=== PATIENT | female | born 1995 | race Caucasian/White ===

== ENCOUNTER 2020-08-04 02:22 | Inpatient (IN) | payer OTHER ==
[~2020-08-04] VITALS: Ht 167.6 cm; Wt 81.1 kg
[2020-08-04] MEDS ORDERED: PRENATAL TABLE1 EAC2 PO (03:27)
[2020-08-04 03:40] LABS: BASOPHILS ABSOLUTE AUTO 0.01 K/mm3 (0.00-0.23); BASOPHILS PERCENT AUTO 0 % (0-2); EOSINOPHILS ABSOLUTE AUTO 0.02 K/mm3 (0.00-0.68); EOSINOPHILS PERCENT AUTO 0 % (0-6); Hematocrit 39.7 % (33.0-51.0); IMMATURE GRAN ABSOLUTE AUTO 0.08 K/mm3 (0.00-0.10); IMMATURE GRAN PERCENT AUTO 1 % (0-1); LYMPHOCYTES ABSOLUTE AUTO 2.12 K/mm3 (0.84-5.20); LYMPHOCYTES PERCENT AUTO 21 % (21-46); MONOCYTES ABSOLUTE AUTO 0.87 K/mm3 (0.16-1.47); MONOCYTES PERCENT AUTO 9 % (4-13); Mean Corpuscular HGB 30.7 pg (26.0-34.0); Mean Corpuscular HGB Conc 32.7 g/dL (31.5-36.5); Mean Corpuscular Volume 94 fL (80-100); Mean Platelet Volume 10.3 fL (9.1-12.4); NEUTROPHILS ABSOLUTE AUTO 6.86 K/mm3 (1.96-9.15); NEUTROPHILS PERCENT AUTO 69 % (41-73); Platelet Count 163 K/mm3 (150-400); RDW Coefficient Variation 16.5 % (11.7-14.2); RDW Standard Deviation 56.8 fL (35.1-46.3); Red Blood Cell Count 4.23 M/mm3 (3.80-5.20); White Blood Cell Count 9.96 K/mm3 (4.00-11.30)
[2020-08-04 04:11] LABS: Influenza A, PCR Negative (NEGATIVE); Influenza B, PCR Negative (NEGATIVE); Resp Syncytial Virus, PCR Negative (NEGATIVE); SARS-Cov-2 (COVID-19) PCR, MMC Negative (NEGATIVE)
--- NOTE | 2020-08-04 17:34 | NUR ---
SHIFT SUMMARY PT HAD THIS AM, MOM IS EXPERIENCED WITH NB, PT MEDICATED FOR CRAMPS THIS SHIFT. [facility] FAXED.
--- NOTE | 2020-08-04 20:03 | NUR ---
1920- PT CALLED RN TO ROOM BECAUSE SHE PASSED A GOLF BALL SIZE CLOT. PT VOIDED AND THEN RN PERFORMED FUNDAL MASSAGE, SCANT BLEEDING NOTED AND NO FURTHER CLOTS EXPELLED, WILL CONTINUE TO MONITOR FOR HEAVY BLEEDING.
[2020-08-05 05:56] LABS: BASOPHILS ABSOLUTE AUTO 0.01 K/mm3 (0.00-0.23); BASOPHILS PERCENT AUTO 0 % (0-2); EOSINOPHILS ABSOLUTE AUTO 0.05 K/mm3 (0.00-0.68); EOSINOPHILS PERCENT AUTO 1 % (0-6); Hematocrit 35.5 % (33.0-51.0); Hemoglobin 11.1 g/dL (11.5-16.0); IMMATURE GRAN ABSOLUTE AUTO 0.06 K/mm3 (0.00-0.10); IMMATURE GRAN PERCENT AUTO 1 % (0-1); LYMPHOCYTES ABSOLUTE AUTO 3.14 K/mm3 (0.84-5.20); LYMPHOCYTES PERCENT AUTO 32 % (21-46); MONOCYTES ABSOLUTE AUTO 1.05 K/mm3 (0.16-1.47); MONOCYTES PERCENT AUTO 11 % (4-13); Mean Corpuscular HGB Conc 31.3 g/dL (31.5-36.5); Mean Corpuscular Volume 96 fL (80-100); Mean Platelet Volume 10.7 fL (9.1-12.4); NEUTROPHILS ABSOLUTE AUTO 5.46 K/mm3 (1.96-9.15); NEUTROPHILS PERCENT AUTO 56 % (41-73); Platelet Count 160 K/mm3 (150-400); RDW Coefficient Variation 16.9 % (11.7-14.2); RDW Standard Deviation 59.1 fL (35.1-46.3); White Blood Cell Count 9.77 K/mm3 (4.00-11.30)
== END 2020-08-05 10:00 | disposition home or self-care (01) | DRG 807 ==
LOC: OBS 02:22 → BC 02:22 → OBS 03:29 → BC 03:31
PROVIDERS: Nurse Practitioner Obstetrics & Gynecology; ADMIT Registered Nurse Community Health
PROC: 10E0XZZ Delivery of Products of Conception, External Approach (ICD-10-PCS; principal; 2020-08-04)
PROC: 00HU33Z Insertion of Infusion Device into Spinal Canal, Percutaneous Approach (ICD-10-PCS; 2020-08-04)
PROC: 3E0R3BZ Introduction of Anesthetic Agent into Spinal Canal, Percutaneous Approach (ICD-10-PCS; 2020-08-04)
DX: O70.1 Second degree perineal laceration during delivery (principal); Z37.0 Single live birth; Z3A.40 40 weeks gestation of pregnancy; Z20.828 Contact with and (suspected) exposure to other viral communicable diseases
CPT/HCPCS: 0241U; 36415; 85025; 86850; 86900; 86901; J1885; J2001; J2210; J2405; J2590; J3010; J7120

== ENCOUNTER → 2021-03-03 | Outpatient (CLI) | payer OTHER ==
[~2021-03-03] MED LIST: PRENATAL TABLE1 EAC2 PO
== END ==
LOC: LAB 12:57 → LAB SHORT 12:57
DX: N92.5 Other specified irregular menstruation (principal)
CPT/HCPCS: 84702; U0003

== ENCOUNTER 2022-12-29 02:16 | Inpatient (IN) | payer OTHER ==
[2022-12-29] VITALS (43 sets, daily range): BP systolic 84–128; BP diastolic 50–80
[~2022-12-29] VITALS: Ht 165.1 cm; Wt 81.3 kg
[2022-12-29 04:15] LABS: BASOPHILS ABSOLUTE AUTO 0.01 K/mm3 (0.00-0.23); BASOPHILS PERCENT AUTO 0 % (0-2); EOSINOPHILS ABSOLUTE AUTO 0.03 K/mm3 (0.00-0.68); EOSINOPHILS PERCENT AUTO 0 % (0-6); Hematocrit 37.1 % (33.0-51.0); Hemoglobin 12.2 g/dL (11.5-16.0); IMMATURE GRAN ABSOLUTE AUTO 0.09 K/mm3 (0.00-0.10); IMMATURE GRAN PERCENT AUTO 1 % (0-1); LYMPHOCYTES ABSOLUTE AUTO 2.35 K/mm3 (0.84-5.20); LYMPHOCYTES PERCENT AUTO 23 % (21-46); MONOCYTES ABSOLUTE AUTO 0.71 K/mm3 (0.16-1.47); MONOCYTES PERCENT AUTO 7 % (4-13); Mean Corpuscular HGB 29.6 pg (26.0-34.0); Mean Corpuscular HGB Conc 32.9 g/dL (31.5-36.5); Mean Corpuscular Volume 90 fL (80-100); Mean Platelet Volume 11.4 fL (9.1-12.4); NEUTROPHILS ABSOLUTE AUTO 7.12 K/mm3 (1.96-9.15); NEUTROPHILS PERCENT AUTO 69 % (41-73); Platelet Count 177 K/mm3 (150-400); RDW Coefficient Variation 13.1 % (11.7-14.2); RDW Standard Deviation 42.8 fL (35.1-46.3); Red Blood Cell Count 4.12 M/mm3 (3.80-5.20); White Blood Cell Count 10.31 K/mm3 (4.00-11.30)
--- NOTE | 2022-12-29 14:29 | NUR ---
REPORT OFF TO SAMAN DRUMMOND
--- NOTE | 2022-12-29 14:37 | NUR ---
ASSUMED CARE PT LYING IN BED EATAING LUNCH, STATES SHE DOES NOT FEEL HER LEGS AND COULD NOT STAND AT THIS TIME, CALL LIGHT GIVEN, INSTRUCTIONS NOT TO GET OUT OF BED WITHOUT RN IN ROOM, PT VERBALIZED UNDERSTANDING, FOB IN ROOM HOLDING NB
--- NOTE | 2022-12-29 18:52 | NUR ---
REPT TO PM SHIFT, STABLE PT CARING FOR SELF AND NB WELL, PT UP TO BATHROOM VOIDED WITHOUT DIFFICULTY
[2022-12-30 00:58] VITALS: BP 118/63
[2022-12-30 05:12] VITALS: BP 107/58
--- NOTE | 2022-12-30 05:24 | NUR ---
Sitting in bed changing baby. Both are alert and awake. no further needs at this time.
[2022-12-30 05:58] LABS: Hematocrit 32.9 % (33.0-51.0); Hemoglobin 10.7 g/dL (11.5-16.0); Mean Corpuscular HGB 29.6 pg (26.0-34.0); Mean Corpuscular HGB Conc 32.5 g/dL (31.5-36.5); Mean Corpuscular Volume 91 fL (80-100); Mean Platelet Volume 11.4 fL (9.1-12.4); Platelet Count 167 K/mm3 (150-400); RDW Coefficient Variation 13.2 % (11.7-14.2); RDW Standard Deviation 43.5 fL (35.1-46.3); Red Blood Cell Count 3.62 M/mm3 (3.80-5.20); White Blood Cell Count 9.62 K/mm3 (4.00-11.30)
--- NOTE | 2022-12-30 07:15 | NUR ---
ASSUMED CARE, PATIENT JUST STARTED BREAST FEEDING WILL RETURN SHORTLY FOR ASSESSMENT, PT DENIES NEED FOR PAIN MEDICATION AT THIS TIME
[2022-12-30 08:18] VITALS: BP 121/60
--- NOTE | 2022-12-30 09:52 | NUR ---
REPT TO ALAN DAVISON
[2022-12-30] MEDS ORDERED: IBUP800 PO (11:33)
[2022-12-30 11:53] VITALS: BP 124/72
== END 2022-12-30 12:33 | disposition home or self-care (01) | DRG 807 ==
LOC: OBS 02:16 → BC 02:21 → OBS 03:50 → BC 03:53
PROVIDERS: ADMIT Advanced Practice Midwife
PROC: 10E0XZZ Delivery of Products of Conception, External Approach (ICD-10-PCS; principal; 2022-12-29)
PROC: 00HU33Z Insertion of Infusion Device into Spinal Canal, Percutaneous Approach (ICD-10-PCS; 2022-12-29)
PROC: 3E0R3BZ Introduction of Anesthetic Agent into Spinal Canal, Percutaneous Approach (ICD-10-PCS; 2022-12-29)
PROC: 0HQ9XZZ Repair Perineum Skin, External Approach (ICD-10-PCS; 2022-12-29)
DX: O48.0 Post-term pregnancy (principal); Z37.0 Single live birth; O70.0 First degree perineal laceration during delivery; Z3A.40 40 weeks gestation of pregnancy; Z67.40 Type O blood, Rh positive
CPT/HCPCS: 36415; 51702; 59025; 85025; 85027; 86850; 86900; 86901; A9270; J1885; J2210; J2405; J2590; J7120

== ENCOUNTER → 2024-12-23 | Outpatient (CLI) | payer OTHER ==
[~2024-12-23] MED LIST changes: +IBUP800 PO
[2024-12-23 17:04] LABS: Bacterial Vaginosis PCR Negative (NEGATIVE); Candida Group, PCR NOT DETECTED (NOT DETECT); Candida glabrata-krusei, PCR NOT DETECTED (NOT DETECT)
[2024-12-26 16:18] LABS: C. TRACHOMATIS BY TMA,THINPREP Negative (Negative); N. GONORRHOEAE BY TMA,THINPREP Negative (Negative); SPECIMEN SOURCE Cervical
== END ==
LOC: LAB SHORT 13:35 → LAB 13:35
PROVIDERS: Family Medicine
DX: Z01.419 Encounter for gynecological examination (general) (routine) without abnormal findings (principal); N89.8 Other specified noninflammatory disorders of vagina
CPT/HCPCS: 81515; 87491; 87591